=== PATIENT | male | born 1945 | race Caucasian/White ===

== ENCOUNTER 2017-03-14 08:50 | Outpatient (POV) | payer OTHER, MEDICARE, SELFPAY | END 2017-03-14 11:26 | disposition home or self-care (01) | PROVIDERS: Visit Provider Podiatrist | DX: I73.1 Thromboangiitis obliterans [Buerger's disease] (principal); M20.42 Other hammer toe(s) (acquired), left foot; M20.41 Other hammer toe(s) (acquired), right foot; M25.571 Pain in right ankle and joints of right foot; M06.9 Rheumatoid arthritis, unspecified | CPT/HCPCS: 99203; 73630 ==

== ENCOUNTER 2017-03-22 07:03 | Day surgery (SDC) | payer OTHER, MEDICARE, SELFPAY | END 2017-03-22 11:05 | disposition home or self-care (01) | PROVIDERS: Family Provider Family Medicine; Visit Provider Podiatrist | DX: I73.1 Thromboangiitis obliterans [Buerger's disease] (principal); M20.41 Other hammer toe(s) (acquired), right foot | CPT/HCPCS: 28820; 73630; 87070; 96375; C1762 ==

== ENCOUNTER 2017-03-28 10:30 | Outpatient (POV) | payer OTHER, MEDICARE, SELFPAY | END 2017-03-28 13:45 | disposition home or self-care (01) | PROVIDERS: Visit Provider Podiatrist | DX: Z98.890 Other specified postprocedural states (principal) | CPT/HCPCS: 99024 ==

== ENCOUNTER → 2017-05-16 20:01 | Outpatient (CLI) | payer OTHER, MEDICARE, SELFPAY | PROVIDERS: PCP Podiatrist; Visit Provider Podiatrist | DX: T14.8XXA Other injury of unspecified body region, initial encounter (principal); L08.9 Local infection of the skin and subcutaneous tissue, unspecified | CPT/HCPCS: 87070; 87077; 87186; 87205 ==

== ENCOUNTER → 2017-06-06 15:48 | Outpatient (CLI) | payer OTHER, MEDICARE, SELFPAY ==
--- NOTE | 2017-06-06 16:48 | XR_ITS ---
XR foot RT min 3V HISTORY: Right foot pain, ulceration. ITS.REASON: WEIGHT BEARING RO O/M ULCER 4TH METATARSAL ORDERING PHYSICIAN: Shelby Gavin DPM PATIENT AGE: 72 years COMPARISON: 03/22/2017 FINDINGS: There has been amputation at the third metatarsophalangeal joint as well as amputation of the distal aspect of the fifth metatarsal. There is a small screw in the distal aspect of the third metatarsal and the distal aspect of the fourth metatarsal. There is some deformity of the distal third and fourth metatarsals are this however is similar when compared to 03/14/2017. No obvious bony erosive process is evident. There is some decreased density within the head of the fourth metatarsal however, this is not significant changed. Mild osteoarthritis is present at the first MTP joint. No other significant anomalies are evident IMPRESSION: Postsurgical changes at the distal third and fourth metatarsals with amputation at the third metatarsophalangeal joint and distal fifth metatarsal. No obvious bony erosive changes evident that would indicate acute osteomyelitis
[2017-06-06 17:24] LABS: Basophils % 0.3 % (0.1-2.0); Eosinophils # 0.2 K/mm3 (0.0-0.4); Hematocrit 44.7 % (42.0-52.0); Hemoglobin 14.6 g/dL (14.1-18.0); Lymphocytes # 1.5 K/mm3 (0.7-4.5); Lymphocytes % 15.8 K/mm3 (10-50); Mean Corpuscular HGB Conc 32.7 g/dL (31.8-35.4); Mean Corpuscular Hemoglobin 30.3 pg (27.0-31.2); Mean Corpuscular Volume 92.5 fl (80-94); Mean Platelet Volume 6.9 fl (7.4-10.4); Monocytes # 0.6 K/mm3 (0.1-1.0); Monocytes % 6.2 % (1.7-9.3); Neutrophils % 75.6 % (37.0-80.0); Platelet Count 431 K/mm3 (142-424); Red Blood Count 4.83 M/mm3 (4.60-6.20); Red Cell Distribution Width 14.2 % (11.5-17.5); White Blood Count 9.2 K/mm3 (4.8-10.8)
[2017-06-06 18:15] LABS: Erythrocyte Sedimentation Rate 59 mm/hr (0-20)
[2017-06-06 18:38] LABS: Alanine Aminotransferase 33 U/L (12-78); Albumin/Globulin Ratio 0.8 (1.1-1.8); Alkaline Phosphatase 113 U/L (46-116); Bilirubin,Total 0.3 mg/dL (0.2-1.0); Blood Urea Nitrogen 13 mg/dL (7-18); C-Reactive Protein 2.7 mg/L (0.0-0.9); Calcium 8.2 mg/dL (8.5-10.1); Carbon Dioxide 29 mmol/L (21.0-32.0); Creatinine,Serum 0.75 mg/dL (0.70-1.30); Estimated Glomerular Filt Rate 103 ml/min (>60); GFR (African American) 125 ML/MIN (>60); Globulin 3.6 gm/dl (1.3-3.2); Glucose 103 mg/dL (74-106); Total Protein,Serum 6.6 gm/dL (6.4-8.2)
[2017-06-06 19:05] LABS: Anion Gap 11.6 mEq/L (5-15); Aspartate Amino Transferase 20 U/L (15-37); Chloride 102 mmol/L (98-107); Potassium 4.6 mmoL/L (3.5-5.1); Sodium 138 mmol/L (136-145)
== END ==
PROVIDERS: PCP Family Medicine; Visit Provider Podiatrist
DX: Z98.890 Other specified postprocedural states (principal); M79.671 Pain in right foot
CPT/HCPCS: 73630; 80053; 85025; 85651; 86140; 87070; 87077; 87186; 87205

== ENCOUNTER → 2017-06-06 16:32 | Outpatient (CLI) | payer OTHER, MEDICARE, SELFPAY | PROVIDERS: PCP Family Medicine; Visit Provider Podiatrist | CPT/HCPCS: 87070; 87205 ==

== ENCOUNTER 2018-05-09 17:30 | Outpatient (RCR) | payer OTHER, MEDICARE, SELFPAY | END 2018-05-09 17:35 | disposition home or self-care (01) | LOC: PT 17:30 | PROVIDERS: PCP Family Medicine; Visit Provider Family Medicine | DX: S81.801A Unspecified open wound, right lower leg, initial encounter (principal) | CPT/HCPCS: 29580; 97161; 97597 ==

== ENCOUNTER → 2018-11-12 14:30 | Outpatient (CLI) | payer OTHER, MEDICARE, SELFPAY ==
--- NOTE | 2018-11-12 14:45 | XR_ITS ---
XR foot wt bearing RT 3V HISTORY: Left foot wound laterally ITS.REASON: Wound of left foot ORDERING PHYSICIAN: Shelby Gavin DPM PATIENT AGE: 73 years COMPARISON: 06/06/2017 FINDINGS: Osteoarthritic change first MTP joint Prior to dictation at the third metatarsophalangeal joint with a stable small screw in the distal aspect of the third metatarsal. Small screws present in the distal aspect of the fourth metatarsal. There is a defect in the distal aspect of the fourth metatarsal medially stable compared to the previous exam Apparent amputation at the distal aspect of the fifth metatarsal. No bony erosive changes. There is some irregular lucency along the distal aspect of the fifth metatarsal consistent with some soft tissue gas.. There is cortical irregularity at the top of the fifth metatarsal amputation site. This however did appear to be present on the previous exam. IMPRESSION: 1. Postsurgical changes as described above. 2. There is some irregular lucency at the fifth metatarsal region distally suggesting soft tissue gas which may be seen with infection or an open wound. 3. No definite erosive lesions apparent of the bony structures
[2018-11-12 14:54] LABS: Basophils % 0.2 % (0.1-2.0); Eosinophils % 0.3 % (0.1-12.0); Hematocrit 44.1 % (42.0-52.0); Hemoglobin 14.3 g/dL (14.1-18.0); Lymphocytes # 0.7 K/mm3 (0.7-4.5); Lymphocytes % 8.8 % (10-50); Mean Corpuscular HGB Conc 32.5 g/dL (31.8-35.4); Mean Corpuscular Hemoglobin 29.3 pg (27.0-31.2); Mean Corpuscular Volume 90.3 fl (80-94); Mean Platelet Volume 6.8 fl (7.4-10.4); Monocytes # 0.5 K/mm3 (0.1-1.0); Monocytes % 6.5 % (1.7-9.3); Neutrophils # 6.4 K/mm3 (1.8-7.8); Neutrophils % 84.2 % (37.0-80.0); Platelet Count 566 K/mm3 (142-424); Red Blood Count 4.89 M/mm3 (4.60-6.20); Red Cell Distribution Width 14.6 % (11.5-17.5); White Blood Count 7.6 K/mm3 (4.8-10.8)
[2018-11-12 16:02] LABS: Erythrocyte Sedimentation Rate 19 mm/hr (0-20)
[2018-11-12 16:17] LABS: Alanine Aminotransferase 23 U/L (12-78); Albumin Level 2.8 gm/dL (3.4-5.0); Albumin/Globulin Ratio 0.8 (1.1-1.8); Alkaline Phosphatase 93 U/L (46-116); Anion Gap 12.5 mEq/L (5-15); Aspartate Amino Transferase 15 U/L (15-37); Bilirubin,Total 0.5 mg/dL (0.2-1.0); Blood Urea Nitrogen 11 mg/dL (7-18); C-Reactive Protein 6.3 mg/dL (0.0-0.9); Calcium 8.9 mg/dL (8.5-10.1); Carbon Dioxide 27 mmol/L (21.0-32.0); Chloride 99 mmol/L (98-107); Creatinine,Serum 0.76 mg/dL (0.70-1.30); Estimated Glomerular Filt Rate 101 ml/min (>60); GFR (African American) 122 ML/MIN (>60); Globulin 3.7 gm/dl (1.3-3.2); Glucose 140 mg/dL (74-106); Potassium 4.5 mmoL/L (3.5-5.1); Sodium 134 mmol/L (136-145); Total Protein,Serum 6.5 gm/dL (6.4-8.2)
== END ==
PROVIDERS: PCP Family Medicine; Visit Provider Podiatrist
DX: Z51.89 Encounter for other specified aftercare (principal); Z89.421 Acquired absence of other right toe(s); Z89.422 Acquired absence of other left toe(s); L84 Corns and callosities; M77.41 Metatarsalgia, right foot; M79.671 Pain in right foot; M79.672 Pain in left foot
CPT/HCPCS: 36415; 73630; 80053; 85025; 85651; 86140

== ENCOUNTER → 2018-11-26 16:11 | Outpatient (CLI) | payer OTHER, MEDICARE, SELFPAY ==
--- NOTE | 2018-11-26 16:16 | US_ITS ---
PROCEDURE: US EXTREMITY RT LIMITED CLINICAL INDICATION: sub 5th met. callus Fifth metatarsal callus, evaluate for residual callus. COMPARISON: No exams were available for comparison FINDINGS: Ultrasound performed at the distal aspect of the 5th metatarsal at the plantar surface to evaluate for residual callus. There was a small area of increased echogenicity oval in nature measuring 9 x 4 mm 4 mm deep to the skin surface possibly due to residual callus. This did correspond to the palpable abnormality. No fluid collection. IMPRESSION: Possible residual callus at the 5th metatarsal region. This is however questionable. Dictated by: Jony Larsen MD 11/28/2018 05:20 Signed by: <Electronically signed by Jony Larsen MD in [place]> 11/28/2018 05:20
== END ==
PROVIDERS: PCP Family Medicine; Visit Provider Podiatrist
DX: L84 Corns and callosities (principal)
CPT/HCPCS: 76882

== ENCOUNTER → 2019-01-07 18:16 | Outpatient (CLI) | payer OTHER, MEDICARE, SELFPAY | LOC: ER 18:17 → LAB 01-09 06:29 | PROVIDERS: Visit Provider Podiatrist | DX: L84 Corns and callosities (principal) | CPT/HCPCS: 87070; 87077; 87186; 87205 ==

== ENCOUNTER → 2019-02-07 17:05 | Outpatient (CLI) | payer OTHER, MEDICARE, SELFPAY | PROVIDERS: Visit Provider Podiatrist | DX: L84 Corns and callosities (principal) | CPT/HCPCS: 87070; 87077; 87186; 87205 ==

== ENCOUNTER 2019-08-19 13:28 | Outpatient (RCR) | payer OTHER, MEDICARE, SELFPAY | END 2019-08-19 13:30 | disposition home or self-care (01) | LOC: PT 13:28 | PROVIDERS: PCP Family Medicine; Visit Provider Family Medicine | DX: S81.8 Open wound of lower leg (principal) | CPT/HCPCS: 97162 ==

== ENCOUNTER → 2019-10-15 15:52 | Outpatient (CLI) | payer OTHER, MEDICARE, SELFPAY ==
--- NOTE | 2019-10-15 15:56 | XR_ITS ---
PROCEDURE: XR FOOT WT BEARING RT 3V CLINICAL INDICATION: Right Lateral 5th met wound. COMPARISON: FTL3 FOOT-LT-3 VIEWS from 03/14/2017 FTR3 FOOT-RT-3 VIEWS from 03/14/2017 FTR3 FOOT-RT-3 VIEWS from 03/22/2017 [id number] XR foot RT min 3V from 06/06/2017 FINDINGS: There has been prior amputation of the distal aspect of the 5th metatarsal. A small ulceration is present at this region laterally at the metatarsophalangeal junction with a small amount of soft tissue gas noted. There is some splintering at the distal and lateral aspect the 5th metatarsal not readily apparent on the previous exam and could be posttraumatic or secondary to underlying osteomyelitis. Please correlate with clinical parameters. MRI may provide further evaluation. There are small screws within the distal aspect of the 4th and 3rd metatarsal. There has been prior amputation of the 3rd toe. Mild osteoarthritic changes are present at the 1st MTP joint with mild hallux valgus IMPRESSION: Postsurgical changes as described above with a small ulceration and soft tissue gas noted at the lateral aspect of the 5th meta tarsal phalangeal junction with minimal splintering of the distal aspect of the 5th metatarsal at the previous area of amputation which could be due to underlying osteomyelitis or posttraumatic changes Dictated by: Jony Larsen MD 10/15/2019 16:36 Electronically signed by Jony Larsen MD in [place] 10/15/2019 16:36
== END ==
PROVIDERS: PCP Family Medicine; Visit Provider Nurse Practitioner
DX: S90.851A Superficial foreign body, right foot, initial encounter (principal)
CPT/HCPCS: 73630; 87070; 87077; 87186; 87205

== ENCOUNTER → 2019-11-07 11:23 | Outpatient (CLI) | payer OTHER, MEDICARE, SELFPAY ==
[2019-11-07 11:58] LABS: Hemoglobin 13.8 g/dL (14.1-18.0); Red Blood Count 4.35 M/mm3 (4.60-6.20); White Blood Count 9.4 K/mm3 (4.8-10.8)
[2019-11-07 11:59] LABS: Basophils % 0.3 % (0.1-2.0); Eosinophils # 0.2 K/mm3 (0.0-0.4); Eosinophils % 1.9 % (0.1-12.0); Hematocrit 40.6 % (42.0-52.0); Lymphocytes # 1.6 K/mm3 (0.7-4.5); Lymphocytes % 16.9 % (10-50); Mean Corpuscular HGB Conc 34.1 g/dL (31.8-35.4); Mean Corpuscular Hemoglobin 31.8 pg (27.0-31.2); Mean Corpuscular Volume 93.2 fl (80-94); Mean Platelet Volume 7.4 fl (7.4-10.4); Monocytes # 0.7 K/mm3 (0.1-1.0); Neutrophils # 6.9 K/mm3 (1.8-7.8); Neutrophils % 73.9 % (37.0-80.0); Platelet Count 456 K/mm3 (142-424); Red Cell Distribution Width 15.2 % (11.5-17.5)
[2019-11-07 12:12] LABS: Chloride 105 mmol/L (98-107)
[2019-11-07 12:13] LABS: Potassium 3.7 mmoL/L (3.5-5.1); Sodium 138 mmol/L (136-145)
[2019-11-07 12:16] LABS: Alanine Aminotransferase 21 U/L (12-78); Albumin Level 3.3 g/dl (3.5-5.0); Albumin/Globulin Ratio 1.1 (1.1-1.8); Alkaline Phosphatase 99 U/L (38-126); Anion Gap 7.7 mEq/L (5-15); Aspartate Amino Transferase 31 U/L (17-59); Bilirubin,Total 0.5 mg/dl (0.2-1.3); Blood Urea Nitrogen 27 mg/dl (9-20); Calcium 8.9 mg/dl (8.4-10.2); Carbon Dioxide 29 mmol/L (22.0-30.0); Estimated Glomerular Filt Rate 111 ml/min (>60); GFR (African American) 134 ML/MIN (>60); Globulin 3.1 g/dL (1.3-3.2); Glucose 98 mg/dl (74-100); Total Protein,Serum 6.4 g/dl (6.3-8.2)
[2019-11-07 12:22] LABS: C-Reactive Protein 17.9 mg/L (0-4)
[2019-11-07 12:39] LABS: Erythrocyte Sedimentation Rate 73 mm/hr (0-20)
== END ==
PROVIDERS: Visit Provider Nurse Practitioner
DX: Z51.89 Encounter for other specified aftercare (principal); S90.851D Superficial foreign body, right foot, subsequent encounter
CPT/HCPCS: 36415; 80053; 85025; 85651; 86140; 87070; 87077; 87205

== ENCOUNTER → 2019-11-21 12:48 | Outpatient (CLI) | payer OTHER, MEDICARE, SELFPAY ==
--- NOTE | 2019-11-21 12:58 | MR_ITS ---
PROCEDURE: MR FOOT RT WO/W CON CLINICAL INDICATION: foreign body, pain PT has foreign body removed from foot. States wound is open and will not heal. Wound on lateral aspect of foot at 5th metatarsal. PT is not a diabetic. COMPARISON: CR XR FOOT WT BEARING RT 3V from 10/15/2019 TECHNIQUE: Routine multiplanar multi echo sequences are performed without and with gadolinium enhancement. FINDINGS: Recent radiograph demonstrates that there has been prior removal of the distal aspect of the 5th metatarsal. The 5th phalanx however is in place. There are 2 small screws at the distal aspect of the 3rd and 4th metatarsal and there has been amputation the 4th metatarsophalangeal junction. There is abnormal signal intensity involving the proximal mid and distal aspect of the remaining 5th metatarsal showing increased T2 signal. There is intense enhancement of the distal aspect the remaining 5th metatarsal also with increased T2 signal in the surrounding soft tissues and surrounding soft tissue enhancement consistent with osteomyelitis with cellulitis. No obvious abscess. On the axial images there is increased signal intensity of the 5th toe however, this is felt to be artifactual in nature not duplicated on the sagittal or coronal images. There is some mild soft tissue edema along the ankle and foot. Prior amputation at the 3rd metatarsophalangeal junction. IMPRESSION: Postsurgical changes of the 5th metatarsal with findings which are compatible with osteomyelitis of the 5th metatarsal with surrounding cellulitis. Dictated by: Jony Larsen MD 11/23/2019 10:22 Jony Larsen MD in [place] 11/23/2019 10:22
== END ==
PROVIDERS: PCP Family Medicine; Visit Provider Podiatrist
DX: M79.671 Pain in right foot (principal); M79.672 Pain in left foot; S90.851A Superficial foreign body, right foot, initial encounter; Z51.89 Encounter for other specified aftercare
CPT/HCPCS: 73720; A9576

== ENCOUNTER → 2019-12-12 15:57 | Outpatient (CLI) | payer OTHER, MEDICARE, SELFPAY ==
--- NOTE | 2019-12-12 16:20 | XR_ITS ---
PROCEDURE: XR CHEST 2V CLINICAL HISTORY: SOB, PRE OPERATIVE TESTING COMPARISON: CT CT CHEST WITH CONTRAST from 10/09/2015 CR [id number] XR ribs RT min 3V w CXR1V from 08/12/2018 FINDINGS: The heart size is unremarkable. Chronic interstitial changes are present with calcified pleural plaques and diaphragmatic plaques bilaterally. These findings are not significantly changed.. No acute bony findings. There is mild biapical pleural thickening. IMPRESSION: Findings compatible with asbestos related exposure as described above overall not significantly changed Dictated by: Jony Larsen MD 12/12/2019 16:34 Jony Larsen MD in [place] 12/12/2019 16:34
--- NOTE | 2019-12-12 16:39 | ECG_ITS ---
APPROVED REPORT Exam: Resting ECG HR:89 bpm ECG Measurements Heart Rate 89 AXES [place] 168 P 38 QRSd 96 QRS 30 QT 378 T 39 QTc 459 <Conclusion> Normal sinus rhythm Normal ECG Electronically signed by : Salvador Wu, 12/13/2019 06:32:01
[2019-12-12 16:45] LABS: Basophils % 0.2 % (0.1-2.0); Eosinophils # 0.1 K/mm3 (0.0-0.4); Eosinophils % 1.2 % (0.1-12.0); Hematocrit 46.9 % (42.0-52.0); Hemoglobin 15.3 g/dL (14.1-18.0); Lymphocytes # 1.3 K/mm3 (0.7-4.5); Lymphocytes % 15.1 % (10-50); Mean Corpuscular HGB Conc 32.6 g/dL (31.8-35.4); Mean Corpuscular Hemoglobin 30.6 pg (27.0-31.2); Mean Corpuscular Volume 93.8 fl (80-94); Mean Platelet Volume 7.8 fl (7.4-10.4); Monocytes # 0.5 K/mm3 (0.1-1.0); Neutrophils # 6.4 K/mm3 (1.8-7.8); Neutrophils % 77.5 % (37.0-80.0); Platelet Count 496 K/mm3 (142-424); Red Cell Distribution Width 14.6 % (11.5-17.5); White Blood Count 8.3 K/mm3 (4.8-10.8)
[2019-12-12 17:03] LABS: Alanine Aminotransferase 27 U/L (12-78); Albumin Level 3.7 g/dl (3.5-5.0); Albumin/Globulin Ratio 1.1 (1.1-1.8); Alkaline Phosphatase 128 U/L (38-126); Anion Gap 15.5 mEq/L (5-15); Aspartate Amino Transferase 34 U/L (17-59); Bilirubin,Total 0.3 mg/dl (0.2-1.3); Blood Urea Nitrogen 23 mg/dl (9-20); Calcium 9.7 mg/dl (8.4-10.2); Carbon Dioxide 25 mmol/L (22.0-30.0); Chloride 101 mmol/L (98-107); Estimated Glomerular Filt Rate 132 ml/min (>60); GFR (African American) 160 ML/MIN (>60); Globulin 3.5 g/dL (1.3-3.2); Glucose 138 mg/dl (74-100); Potassium 4.5 mmoL/L (3.5-5.1); Sodium 137 mmol/L (136-145); Total Protein,Serum 7.2 g/dl (6.3-8.2)
[2019-12-12 17:08] LABS: C-Reactive Protein 28.3 mg/L (0-4)
[2019-12-12 17:11] LABS: Erythrocyte Sedimentation Rate 53 mm/hr (0-20)
[2019-12-12 17:32] LABS: Coronavirus 19 IgG Antibody Negative (Negative)
[2019-12-12 17:40] LABS: Coronavirus 19 IgM Antibody Positive (Negative)
[2019-12-13 11:51] LABS: Hemoglobin A1C 5.6 % (4.0-6.0)
== END ==
PROVIDERS: Nurse Practitioner; Visit Provider Podiatrist
DX: R73.9 Hyperglycemia, unspecified (principal); Z01.810 Encounter for preprocedural cardiovascular examination; L97.514 Non-pressure chronic ulcer of other part of right foot with necrosis of bone
CPT/HCPCS: 36415; 71046; 80053; 83036; 85025; 85651; 86140; 86328; 93005

== ENCOUNTER → 2019-12-13 10:29 | Outpatient (CLI) | payer OTHER, MEDICARE, SELFPAY ==
[2019-12-14 14:34] LABS: Covid-19 Nasal PCR Sendout Lex Not Detected
== END ==
PROVIDERS: PCP Family Medicine; Visit Provider Nurse Practitioner
DX: Z03.818 Encounter for observation for suspected exposure to other biological agents ruled out (principal)
CPT/HCPCS: U0004

== ENCOUNTER 2019-12-25 10:09 | Day surgery (SDC) | payer OTHER, MEDICARE, SELFPAY ==
[2019-12-25] VITALS (17 sets, daily range): BP systolic 92–168; BP diastolic 47–95; PULSE 67–81; RESP 17–20; O2SAT 98–100; BMI 26.4
--- NOTE | 2019-12-25 09:33 | CA_ITS ---
APPROVED REPORT EXAM: Comprehensive 2D, Doppler, and color-flow Echocardiogram It Communications Manager: Rosalee Moralez RVT Ht: 5 ft 11 in Wt: 191lbs BSA: 2.07 BP: 139/94 mmHg Indications: abn ekg,cad,pad,pre-op toe amputation,htn TDS-LIMITED WINDOWS 2D Dimensions LVOT 2.10 cm (M/F) 1.5-2.5 M-Mode Dimensions RVDd 2.00 cm (0.9-2.6) LA Diam 3.00 cm (1.9-4.0) LVDd 5.90 cm (3.5-5.7) Ao Diam 3.60 cm (2.0-3.7) LVDs 4.20 cm (3.5-5.7) AV Cusp 1.70 cm (1.5-2.6) IVSd 0.50 cm (0.6-1.1) PWd 0.70 cm (0.6-1.1) EF (Teich) 54.60% FS 28.80% EDV (Teich) 173.00 mL ESV (Teich) 78.60 mL LV Diastology E/A Ratio 0.9 MED E' 8.77 (< 7 cm/sec) E'/MED E' Ratio 6.60 (>14) LAT E' 8.09 (<10 cm/sec) E/LAT E' Ratio 7.10 (>14) Aortic Valve AoV Peak Lennox. 108.00 (50-130 cm/s) AO Peak GR. 5.00 mmHg Mitral Valve MV E Max Lennox. 57.80 (40-130 cm/s) MV A Velocity 66.60 (40-130 cm/s) E/A Ratio 0.90 Pulmonary Valve PV Peak Velocity 111.00 (50-150 cm/s) Left Ventricle Left atrium is mildly enlarged, left ventricle is normal size, mild concentric left ventricular hypertrophy, visually estimated ejection fraction 50%, there is moderate hypokinesis involving the inferior basal wall. Endocardial surfaces are poorly visualized, diastolic parameters are inconclusive. Right Ventricle Right atrium and right ventricular normal size and contractility. Aortic Valve Aortic valve is thickened and calcified leaflet chordae display good mobility, there is no aortic stenosis or aortic insufficiency. Mitral Valve Mitral valve is grossly normal, there is mild mitral regurgitation. Tricuspid Valve Tricuspid valve is grossly normal, there is mild tricuspid regurgitation, tricuspid regurgitation jet velocity is inadequate for calculation of the right ventricular systolic pressure. Pulmonic Valve Pulmonic valve is poorly visualized. Great Vessels Root is normal size. Pericardium No significant pericardial effusion noted. Conclusion 1. Technically difficult study because of the patient fact in poor acoustic windows 2. Mildly enlarged left atrium, normal left ventricular size, visually estimated ejection fraction 50% with segmental wall motion abnormality as described above. 3. Mild mitral and tricuspid regurgitation. 4. No significant pericardial effusion noted. Electronically signed by : Joe Solis, 12/26/2019 15:36:28
--- NOTE | 2019-12-25 10:30 | IR_ITS ---
APPROVED REPORT Patient Location: Outpatient Tool Design Checker: RAGINI Yang RT (R) PROCEDURES Catheter placed in the abdominal aorta Abdominal aortography Repositioning the catheter in the abdominal aorta Bilateral iliofemoral runoff INDICATION Preoperative evaluation for amputation, Converse class V claudication, Abnormal EDI Informed consent was obtained prior to the procedure. COMPLICATIONS NONE Estimated Blood Loss: LESS THAN 10 ML TECHNIQUE 1% lidocaine used to anesthetize the left femoral groin. The left femoral artery was accessed via the Seldinger technique. Using fluoroscopic guidance the JR4 catheter was advanced from the aorta into the right common iliac artery and then advanced into the right superficial femoral artery. There unilateral selective angiography with runoff to the foot was performed. Following this the catheter was pulled back into the right common iliac artery and angiography was performed. At the end of the procedure the patient was transferred to the postop holding area in stable condition for sheath removal. ANGIOGRAPHIC RESULTS The infrarenal abdominal aorta is mildly atheromatous with 10% stenoses. The bilateral common iliac arteries are mildly atheromatous with 10% stenoses. The bilateral internal iliac arteries and external iliac arteries are normal. The bilateral common femoral arteries are normal Bilateral profunda femoris arteries are normal The bilateral superficial femoral arteries are mildly atheromatous with no focal stenosis greater than 10%. The bilateral popliteal arteries are normal Below the knee the right leg has a widely patent anterior tibialis artery. The peroneal artery is subtotally occluded at mid vessel and then reconstitutes distally. The posterior tibialis artery is proximally occluded and has scant distal recannulation via collaterals through the peroneal artery and the posterior tibialis artery scantly supplies the foot. Below the left knee the anterior tibialis artery is widely patent into the left foot. The left peroneal artery is occluded at mid vessel. The posterior tibialis artery is also occluded at mid vessel. There is single-vessel runoff into the foot from the anterior tibialis artery IMPRESSION Bilateral infrageniculate small vessel disease as described above all of which is too small for percutaneous or surgical revascularization PLAN 1. Xarelto 2.5 twice daily plus aspirin 81 mg daily for peripheral artery disease 2. LDL less than 55 3. Risk factor modification 4. Physical therapy Electronically signed by : Navneet Pantoja, 12/25/2019 14:10:12
[2019-12-25 10:34] LABS: Basophils % 0.4 % (0.1-2.0); Eosinophils # 0.3 K/mm3 (0.0-0.4); Eosinophils % 2.7 % (0.1-12.0); Hematocrit 47.1 % (42.0-52.0); Hemoglobin 15.4 g/dL (14.1-18.0); Lymphocytes # 1.4 K/mm3 (0.7-4.5); Mean Corpuscular HGB Conc 32.6 g/dL (31.8-35.4); Mean Corpuscular Hemoglobin 30.9 pg (27.0-31.2); Mean Corpuscular Volume 94.6 fl (80-94); Mean Platelet Volume 7.5 fl (7.4-10.4); Monocytes # 0.6 K/mm3 (0.1-1.0); Monocytes % 5.7 % (1.7-9.3); Neutrophils # 7.9 K/mm3 (1.8-7.8); Neutrophils % 77.2 % (37.0-80.0); Platelet Count 489 K/mm3 (142-424); Red Blood Count 4.97 M/mm3 (4.60-6.20); Red Cell Distribution Width 14.2 % (11.5-17.5); White Blood Count 10.2 K/mm3 (4.8-10.8)
[2019-12-25 10:41] LABS: Chloride 103 mmol/L (98-107); Potassium 3.6 mmoL/L (3.5-5.1); Sodium 140 mmol/L (136-145)
[2019-12-25 10:44] LABS: Anion Gap 10.6 mEq/L (5-15); Blood Urea Nitrogen 21 mg/dl (9-20); Calcium 9.5 mg/dl (8.4-10.2); Carbon Dioxide 30 mmol/L (22.0-30.0); Creatinine Clearance Estimated 81 mL/min (50-200); Estimated Glomerular Filt Rate 111 ml/min (>60); GFR (African American) 134 ML/MIN (>60); Glucose 101 mg/dl (74-100)
[2019-12-25 11:04] LABS: Coronavirus 19 IgG Antibody Negative (Negative); Coronavirus 19 IgM Antibody Negative (Negative)
== END 2019-12-25 15:49 | disposition home or self-care (01) ==
LOC: CATHLAB 10:10
PROVIDERS: PCP Family Medicine; Visit Provider Internal Medicine
DX: I70.235 Atherosclerosis of native arteries of right leg with ulceration of other part of foot (principal); L97.514 Non-pressure chronic ulcer of other part of right foot with necrosis of bone; M79.671 Pain in right foot; M79.672 Pain in left foot; Z89.421 Acquired absence of other right toe(s); Z89.422 Acquired absence of other left toe(s); Z79.899 Other long term (current) drug therapy; Z88.8 Allergy status to other drugs, medicaments and biological substances
CPT/HCPCS: 36200; 75716; 80048; 85025; 86328; 93306; 99152; C1725; C1769; C1894; J1644

== ENCOUNTER → 2020-01-01 13:45 | Outpatient (CLI) | payer OTHER, MEDICARE, SELFPAY ==
[2020-01-01 15:16] LABS: Coronavirus 19 IgG Antibody Negative (Negative)
[2020-01-01 15:19] LABS: Coronavirus 19 IgM Antibody Positive (Negative)
== END ==
PROVIDERS: Visit Provider Podiatrist
DX: Z01.89 Encounter for other specified special examinations (principal); M86.171 Other acute osteomyelitis, right ankle and foot
CPT/HCPCS: 36415; 86328

== ENCOUNTER → 2020-01-02 11:28 | Outpatient (CLI) | payer OTHER, MEDICARE, SELFPAY ==
[2020-01-03 14:09] LABS: Covid-19 Nasal PCR Sendout Lex NOT DETECTED
== END ==
PROVIDERS: PCP Family Medicine; Visit Provider Internal Medicine
DX: Z03.818 Encounter for observation for suspected exposure to other biological agents ruled out (principal)
CPT/HCPCS: U0004

== ENCOUNTER 2020-01-08 08:48 | Day surgery (SDC) | payer OTHER, MEDICARE, SELFPAY ==
[2020-01-08] VITALS (11 sets, daily range): BP systolic 109–142; BP diastolic 60–89; PULSE 61–76; RESP 16–18; TEMP 36.8; O2SAT 88–98; BMI 25.9
--- NOTE | 2020-01-08 09:00 | IR_ITS ---
APPROVED REPORT Patient Location: Outpatient Locator: RAGINI Yang RT (R) PROCEDURES Left heart catheterization Left ventriculogram Selective coronary angiogram INDICATION Preoperative evaluation for amputation Informed consent was obtained prior to the procedure. COMPLICATIONS NONE Estimated Blood Loss: LESS THAN 10 ML TECHNIQUE One percent lidocaine used to anesthetize the right anterior aspect of the wrist. The right radial artery was accessed via the Seldinger technique. A 6 Bulgarian sheath was placed in the right radial artery. 2.5 mg of verapamil, 800 mcg of nitroglycerin, 1mg Lidocaine and 5000 U Heparin were given through the arterial sheath. The trap catheter and 6 Bulgarian JL 3 catheter were used to perform left heart catheterization, left ventriculogram and selective coronary angiogram. At the end of the procedure the sheath was removed good hemostasis was achieved using Traclet band, patient was transferred to the postop holding area in stable condition. ANGIOGRAPHIC RESULTS The left main artery Normal The left anterior descending artery Has a proximal concentric 30% stenosis followed by an additional 30 to 40% proximal concentric stenosis The circumflex artery Nondominant normal The right coronary artery Has an anterior takeoff is large and dominant with a mid vessel 30 to 40% concentric stenosis The GONZALEZ ventriculogram reveals Preserved to mildly reduced at 55% The left ventricular end-diastolic pressure 10 mmHg IMPRESSION Mild to moderate xtn-jwft-[id number] coronary disease as described above Preserved to slightly reduced ejection fraction of 55% Normal left ventricular end-diastolic pressure PLAN 1. Patient is alone acceptable risk to proceed with lower extremity digit amputation 2. Continue risk factor modification 3. LDL less than 55 4. Avoidance of tobacco products Electronically signed by : Navneet Pantoja, 01/08/2020 10:41:46
[2020-01-08 09:28] LABS: Basophils % 0.4 % (0.1-2.0); Eosinophils # 0.3 K/mm3 (0.0-0.4); Hematocrit 45.9 % (42.0-52.0); Hemoglobin 14.7 g/dL (14.1-18.0); Lymphocytes # 1.7 K/mm3 (0.7-4.5); Lymphocytes % 17.9 % (10-50); Mean Corpuscular Hemoglobin 30.1 pg (27.0-31.2); Mean Corpuscular Volume 93.9 fl (80-94); Monocytes # 0.6 K/mm3 (0.1-1.0); Monocytes % 6.2 % (1.7-9.3); Neutrophils # 6.9 K/mm3 (1.8-7.8); Neutrophils % 72.5 % (37.0-80.0); Platelet Count 507 K/mm3 (142-424); Red Blood Count 4.89 M/mm3 (4.60-6.20); Red Cell Distribution Width 13.6 % (11.5-17.5); White Blood Count 9.6 K/mm3 (4.8-10.8)
[2020-01-08 09:39] LABS: Anion Gap 8.5 mEq/L (5-15); Blood Urea Nitrogen 19 mg/dl (9-20); Calcium 9.2 mg/dl (8.4-10.2); Carbon Dioxide 31 mmol/L (22.0-30.0); Chloride 102 mmol/L (98-107); Creatinine Clearance Estimated 82 mL/min (50-200); Estimated Glomerular Filt Rate 132 ml/min (>60); GFR (African American) 160 ML/MIN (>60); Glucose 101 mg/dl (74-100); Potassium 3.5 mmoL/L (3.5-5.1); Sodium 138 mmol/L (136-145)
[2020-01-08 10:13] LABS: Coronavirus 19 IgG Antibody Negative (Negative)
[2020-01-08 10:14] LABS: Coronavirus 19 IgM Antibody Positive (Negative)
== END 2020-01-08 13:32 | disposition home or self-care (01) ==
PROVIDERS: PCP Family Medicine; Visit Provider Internal Medicine
DX: L97.514 Non-pressure chronic ulcer of other part of right foot with necrosis of bone (principal); M79.671 Pain in right foot; M79.672 Pain in left foot; R93.1 Abnormal findings on diagnostic imaging of heart and coronary circulation; Z89.421 Acquired absence of other right toe(s); Z89.422 Acquired absence of other left toe(s); I25.10 Atherosclerotic heart disease of native coronary artery without angina pectoris; Z79.899 Other long term (current) drug therapy; I10 Essential (primary) hypertension; Z88.8 Allergy status to other drugs, medicaments and biological substances
CPT/HCPCS: 80048; 85025; 86328; 93458; 99152; C1725; C1769; C1894; J1644; Q9967

== ENCOUNTER → 2020-01-09 13:14 | Outpatient (CLI) | payer OTHER, MEDICARE, SELFPAY | LOC: COVID.OUT 13:15 → LAB 01-10 06:11 | PROVIDERS: PCP Family Medicine; Visit Provider Podiatrist | DX: Z03.818 Encounter for observation for suspected exposure to other biological agents ruled out (principal) | CPT/HCPCS: U0003 ==

== ENCOUNTER 2020-01-10 06:12 | Day surgery (SDC) | payer MEDICARE, SELFPAY ==
[2020-01-01 08:26] VITALS: BMI 25.9
[2020-01-10] VITALS (12 sets, daily range): BP systolic 105–135; BP diastolic 71–84; PULSE 70–83; RESP 16–18; TEMP 36.3–43; O2SAT 95–98
--- NOTE | 2020-01-10 06:59 | XR_ITS ---
PROCEDURE: XR CHEST PORTABLE PICC PLAC CLINICAL HISTORY: PICC line placement COMPARISON: CT CT CHEST WITH CONTRAST from 10/09/2015 CR [id number] XR ribs RT min 3V w CXR1V from 08/12/2018 CR XR CHEST 2V from 12/12/2019 FINDINGS: The lung prajapati are fairly well expanded. Prominent bilateral calcific pleural plaques are again noted which are stable. There is no acute infiltrate. There is chronic stable elevation left hemidiaphragm with calcified plaque on the medial aspect of the left hemidiaphragm and a similar calcified plaque medial aspect right hemidiaphragm. Cardiac size is normal and vascularity is normal. There is a left-sided PICC line seen ascending the left axillary vein and the tip is in the SVC well above the right atrium. There is no pneumothorax. IMPRESSION: Stable chronic calcified pleural plaques, satisfactory position of PICC line Dictated by: Dr. Danny Junior MD 01/10/2020 08:45 Dr. Danny Junior MD in [place] 01/10/2020 08:45
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
--- NOTE | 2020-01-10 08:21 | P.PN_ITS ---
[facility] Anesthesia Checklist - Patient Identification Patient Identification: Arm Band - Structural Data Admitted From: Home Planned Operative Procedure/s: I&D right foot Consent for Planned Operative Procedure(s) Verified: Yes Verified Documents: Surgical Consent, History and Physical - NPO Status Verified Time NPO: 00:00 - Additional verifications Anesthesia Reactions: No Hx Blood Transfusions: No Blood Transfusion Reaction: No - Airway Assessment C-Spine Mobility Assessed: Yes (mp2) TMJ Mobility Assessed: Yes Dentition: Edentulous - Neurological Assessment Level of Consciousness: Awake, Alert - Anesthesia Plan Anesthesia Risk discussed: Yes Anesthesia Plan: Verified ASA Class: III Anesthesia Type: General [facility] History I have reviewed the patient's past medical history: Yes Medical History: Reports:: Atherosclerotic Heart Disease, Gastroesophageal Reflux Disease(GERD), Hypertension, Peripheral Artery Disease, Peripheral Vascular Disease Denies:: Cancer, Diabetes Mellitus Type 1, Diabetes Mellitus Type 2, Hyperlipidemia, Internal Pacemaker, MRSA, Seizures *Have you ever received a pneumonia vaccine?: Yes *Have you received a flu vaccine this season?: No Other Medical History: Reports: Arthritis, Cataracts. Denies: Blood Transfusion Reaction Anesthesia experience/problems:: nac Laterality Cases: Bilateral: Other Other Surgeries: Yes: Angiogram, Colonoscopy, Other. No: Pacemaker Amputation: Yes (R foot 3rd toe, L foot 2nd toe, Partial amputation 4th left hand ) Fractures: Yes - *Social History Last grade of school completed: GED Smoking Status: Former smoker Tobacco Type: cigarettes # Packs/Day (cigarettes): 0 #Yrs smoked (if former smoker): 0 Smoking End Date: 2002 Alcohol Intake: never Alcohol Intake Frequency:: a few times a month Substance Use Type: denies use *Occupational Status:: retired Housing: house Household Members: none *Travel in the last 8 weeks: None Family Hx:: Diabetes
--- NOTE | 2020-01-10 08:45 | XR_ITS ---
PROCEDURE: XR FOOT RT MIN 3V Referring Doctor: Shelby Gavin Patient Age:74Y CLINICAL INDICATION: Post op amp 5th toe COMPARISON: CR FTR3 FOOT-RT-3 VIEWS from 03/22/2017 CR [id number] XR foot RT min 3V from 06/06/2017 CR XR FOOT WT BEARING RT 3V from 10/15/2019 CR XR FOOT RT 2V from 01/10/2020 FINDINGS: Right foot-three views: Comparison is made to early intraoperative images from today. There has been transverse amputation 5th ray at the level of proximal 5th metatarsal through the metaphysis/diametaphyseal region. Slightly radiopaque antibiotic pellets seen along the course of the resected 5th metatarsal. Soft tissue dressing about the foot most evident overlying the resected 5th metatarsal region The patient has old prior amputation of the 3rd toe at the level of the 3rd MTP joint. Also at 3rd and 4th metatarsal again note prior metatarsal surgery with small screws passing obliquely from head to the neck of both 3rd and 4th meta tarsal headsdating back to at least 2017 the Mild degenerative changes 1st MTP joint similar to previous studies there is some small subchondral cystic changes base of proximal phalanx great toe associated and again noted.. Mild hallux valgus deformity Tarsals intact. Faint small vessel calcification noted posterior to the ankle reflecting likely underlying diabetes IMPRESSION: Current amputation at the level of proximal 5th metatarsal. Associated postsurgical changes . Old amputation 3rd toe at the level of 3rd MTP joint . Old stable postsurgical changes 3rd and 4th metatarsal head/neck . Degenerative changes 1st MTP joint. Mild hallux valgus Dictated by: Lincoln Carpio MD 01/12/2020 10:22 Lincoln Carpio MD in [place] 01/12/2020 10:22
--- NOTE | 2020-01-10 08:57 | XR_ITS ---
PROCEDURE: XR FOOT RT 2V Referring Doctor: Shelby Gavin Patient Age:74Y CLINICAL INDICATION: Fifth TOE-AMPUTATION 5TH metatarsal COMPARISON: . CR [id number] XR foot RT min 3V from 06/06/2017 CR XR FOOT WT BEARING RT 3V from 10/15/2019 FINDINGS: Right foot-three: Spot views with fluoroscopy time 0.1 2 fluoroscopic spot views the submitted today from OR,. These document positioning and amputation of the 5th ray at the level of proximal 5th metatarsal Also note the patient has old prior amputation of the 3rd toe at the level of the 3rd MTP joint. Also at 3rd and 4th metatarsal again note prior metatarsal surgery with small screws passing obliquely from head to the neck of both 3rd and 4th meta tarsal headsdating back to at least 2017 the . IMPRESSION: Current images document amputation at the level of proximal 5th metatarsal.. . IMPRESSION: .Current images document amputation at the level of proximal 5th metatarsal.. Dictated by: Lincoln Carpio MD 01/12/2020 10:25 Lincoln Carpio MD in [place] 01/12/2020 10:25
--- NOTE | 2020-01-10 09:29 | HMH.ANESI ---
[facility] Anesthesia Record Part I Intake, IV Amount: 1,000 Estimated blood loss (mL): 10 Urine output (mL): 0 Blood Pressure: 126/78 SaO2: 96 Pulse Rate: 82 Respiratory Rate: 16 Temperature: 97.9 F Patient is:: Drowsy, Stable Stable to PACU at:: 09:25
--- NOTE | 2020-01-10 10:51 | SUR.PHASEI ---
0931-xray @ bs taking xray. Pt tolerated well. 0935- eating ice chips. Tolerated well. 0945- @ BS talking to pt. No new orders received.
--- NOTE | 2020-01-10 11:38 | HMH.ANESII ---
[facility] Anesthesia Record Part II Discharge Time: 09:55 Destination: Surgical Day Care (OP Surgery) PACU nurse assessment reviewed?: Yes Patient Condition:: Good Anesthesia Complications:: None Swallowing reflex intact?: Yes Cyanosis?: No Blood Pressure: 135/71 Pulse Rate: 75 Temperature: 97.3 F Mental Status: Alert & Oriented Pain level:: 0 Nausea and/or vomitting:: None Intake, IV Amount: 0
== END 2020-01-10 11:10 | disposition home or self-care (01) ==
LOC: OR 06:14
PROVIDERS: PCP Family Medicine; Visit Provider Podiatrist
PROC: (CPT 28810; principal; 2020-01-10 07:30)
DX: L97.514 Non-pressure chronic ulcer of other part of right foot with necrosis of bone (principal); M87.874 Other osteonecrosis, right foot; M86.171 Other acute osteomyelitis, right ankle and foot; I73.1 Thromboangiitis obliterans [Buerger's disease]; S90.01XD Contusion of right ankle, subsequent encounter; S90.31XD Contusion of right foot, subsequent encounter; S91.001D Unspecified open wound, right ankle, subsequent encounter; L03.115 Cellulitis of right lower limb; Z79.01 Long term (current) use of anticoagulants; Z87.891 Personal history of nicotine dependence; I10 Essential (primary) hypertension; Z89.421 Acquired absence of other right toe(s); Z89.422 Acquired absence of other left toe(s)
CPT/HCPCS: 11042; 28810; 71045; 73620; 73630; 87070; 87077; 87205; 88305; 88311; 96374; C1713; C1751; J2405; J3370

== ENCOUNTER → 2020-01-11 10:38 | Outpatient (CLI) | payer OTHER, MEDICARE, SELFPAY ==
[2020-01-11 12:04] VITALS: BP 145/75; PULSE 66; RESP 20; TEMP 36.6; O2SAT 99; BMI 25.9
== END ==
PROVIDERS: PCP Family Medicine; Visit Provider Podiatrist
DX: M86.8X7 Other osteomyelitis, ankle and foot (principal)
CPT/HCPCS: 96365; J0878

== ENCOUNTER → 2020-01-12 10:30 | Outpatient (CLI) | payer OTHER, MEDICARE, SELFPAY ==
[2020-01-12 10:30] VITALS: BP 136/72; PULSE 81; RESP 18; TEMP 36.6; O2SAT 97
[2020-01-12 11:25] VITALS: BP 133/69; PULSE 84; RESP 18; TEMP 36.6; O2SAT 98
== END ==
PROVIDERS: PCP Family Medicine; Visit Provider Podiatrist
DX: M86.8X7 Other osteomyelitis, ankle and foot (principal)
CPT/HCPCS: 96365; J0878

== ENCOUNTER 2020-01-13 09:55 | Outpatient (CLI) | payer OTHER, MEDICARE, SELFPAY ==
[2020-01-13 10:04] VITALS: BMI 25.9
[2020-01-13 10:20] VITALS: BP 156/78; PULSE 77; RESP 18; TEMP 37.1; O2SAT 96
[2020-01-13 10:50] LABS: Creatine Kinase 46 U/L (55-170)
[2020-01-13 11:20] VITALS: BP 116/80; PULSE 79; RESP 18; TEMP 36.6; O2SAT 96
== END 2020-01-13 11:20 | disposition home or self-care (01) ==
LOC: INF 10:03
PROVIDERS: Visit Provider Podiatrist
DX: M86.8X7 Other osteomyelitis, ankle and foot (principal)
CPT/HCPCS: 82550; 96365; J0878

== ENCOUNTER 2020-01-14 10:16 | Outpatient (CLI) | payer OTHER, MEDICARE, SELFPAY ==
[2020-01-14 10:35] VITALS: BP 154/73; PULSE 81; RESP 18; O2SAT 96
[2020-01-14 11:35] VITALS: BP 136/67; PULSE 71; RESP 18
== END 2020-01-14 11:35 | disposition home or self-care (01) ==
LOC: INF 10:16
PROVIDERS: Visit Provider Podiatrist
DX: M86.8X7 Other osteomyelitis, ankle and foot (principal)
CPT/HCPCS: 96365; J0878

== ENCOUNTER 2020-01-15 10:10 | Outpatient (CLI) | payer OTHER, MEDICARE, SELFPAY ==
[2020-01-15 10:40] VITALS: BP 147/73; PULSE 78; RESP 18; TEMP 36.3; O2SAT 97
[2020-01-15 11:42] VITALS: BP 136/79; PULSE 64; RESP 18
== END 2020-01-15 11:42 | disposition home or self-care (01) ==
LOC: INF 10:15
PROVIDERS: Visit Provider Podiatrist
DX: M86.8X7 Other osteomyelitis, ankle and foot (principal)
CPT/HCPCS: 96365; J0878

== ENCOUNTER 2020-01-16 10:45 | Outpatient (CLI) | payer OTHER, MEDICARE, SELFPAY ==
[2020-01-16 11:06] VITALS: BP 124/70; PULSE 72; RESP 18; TEMP 36.6; O2SAT 98
[2020-01-16 11:36] VITALS: BP 121/73; PULSE 76; RESP 18; O2SAT 98
[2020-01-16 11:55] VITALS: BP 127/76; PULSE 74; RESP 18; O2SAT 97
== END 2020-01-16 12:00 | disposition home or self-care (01) ==
LOC: INF 10:46
PROVIDERS: Visit Provider Podiatrist
DX: M86.8X7 Other osteomyelitis, ankle and foot (principal)
CPT/HCPCS: 96365; J0878

== ENCOUNTER 2020-01-17 10:14 | Outpatient (CLI) | payer OTHER, MEDICARE, SELFPAY ==
[2020-01-17 10:39] VITALS: BP 142/78; PULSE 75; RESP 18; TEMP 36.6; O2SAT 97
[2020-01-17 11:35] VITALS: BP 131/74; PULSE 72; RESP 16; TEMP 36.6; O2SAT 98
== END 2020-01-17 11:40 | disposition home or self-care (01) ==
LOC: INF 10:14
PROVIDERS: Visit Provider Podiatrist
DX: M86.8X7 Other osteomyelitis, ankle and foot (principal)
CPT/HCPCS: 96365; J0878

== ENCOUNTER → 2020-01-18 10:34 | Outpatient (CLI) | payer MEDICARE, SELFPAY ==
[2020-01-18 10:54] VITALS: BP 127/70; PULSE 83; RESP 16; TEMP 36.7; O2SAT 97
== END ==
PROVIDERS: PCP Family Medicine; Visit Provider Podiatrist
DX: M86.8X7 Other osteomyelitis, ankle and foot (principal)
CPT/HCPCS: 96365; J0878

== ENCOUNTER 2020-01-19 10:35 | Outpatient (CLI) | payer OTHER, MEDICARE, SELFPAY ==
[2020-01-19 11:05] VITALS: BP 144/76; PULSE 77; RESP 17; TEMP 36.8; O2SAT 97
[2020-01-19 11:35] VITALS: BP 147/72; PULSE 63; RESP 16; TEMP 36.9; O2SAT 95
== END 2020-01-19 11:35 | disposition home or self-care (01) ==
LOC: INF 10:38
PROVIDERS: PCP Family Medicine; Visit Provider Podiatrist
DX: M86.8X7 Other osteomyelitis, ankle and foot (principal)
CPT/HCPCS: 96365; G0463; J0878

== ENCOUNTER 2020-01-20 09:38 | Outpatient (CLI) | payer OTHER, MEDICARE, SELFPAY ==
[2020-01-20 09:39] VITALS: BMI 25.9
[2020-01-20 10:00] VITALS: BP 119/64; PULSE 74; RESP 18; TEMP 36.4; O2SAT 98
[2020-01-20 10:03] LABS: Basophils % 0.3 % (0.1-2.0); Eosinophils # 0.3 K/mm3 (0.0-0.4); Eosinophils % 3.3 % (0.1-12.0); Hemoglobin 13.4 g/dL (14.1-18.0); Lymphocytes # 1.6 K/mm3 (0.7-4.5); Lymphocytes % 17.3 % (10-50); Mean Corpuscular HGB Conc 31.8 g/dL (31.8-35.4); Mean Corpuscular Hemoglobin 29.7 pg (27.0-31.2); Mean Corpuscular Volume 93.2 fl (80-94); Mean Platelet Volume 7.2 fl (7.4-10.4); Monocytes # 0.8 K/mm3 (0.1-1.0); Monocytes % 8.4 % (1.7-9.3); Neutrophils # 6.3 K/mm3 (1.8-7.8); Neutrophils % 70.7 % (37.0-80.0); Platelet Count 428 K/mm3 (142-424); Red Blood Count 4.51 M/mm3 (4.60-6.20); Red Cell Distribution Width 13.5 % (11.5-17.5)
[2020-01-20 10:12] LABS: Chloride 102 mmol/L (98-107)
[2020-01-20 10:13] LABS: Potassium 3.3 mmoL/L (3.5-5.1); Sodium 135 mmol/L (136-145)
[2020-01-20 10:15] LABS: Alanine Aminotransferase 25 U/L (12-78); Alkaline Phosphatase 103 U/L (38-126); Anion Gap 8.3 mEq/L (5-15); Aspartate Amino Transferase 38 U/L (17-59); Bilirubin,Total 0.4 mg/dl (0.2-1.3); Blood Urea Nitrogen 21 mg/dl (9-20); Carbon Dioxide 28 mmol/L (22.0-30.0); Creatine Kinase 66 U/L (55-170); Creatinine Clearance Estimated 82 mL/min (50-200); Estimated Glomerular Filt Rate 132 ml/min (>60); GFR (African American) 160 ML/MIN (>60)
[2020-01-20 10:16] LABS: Albumin Level 3.4 g/dl (3.5-5.0); Calcium 8.9 mg/dl (8.4-10.2); Globulin 3.5 g/dL (1.3-3.2); Glucose 118 mg/dl (74-100); Total Protein,Serum 6.9 g/dl (6.3-8.2)
[2020-01-20 10:21] LABS: C-Reactive Protein 15.4 mg/L (0-4)
[2020-01-20 10:29] LABS: Erythrocyte Sedimentation Rate 69 mm/hr (0-20)
[2020-01-20 10:30] VITALS: BP 117/69; PULSE 72; RESP 18; O2SAT 97
[2020-01-20 11:00] VITALS: BP 112/76; PULSE 66; RESP 18; O2SAT 98
== END 2020-01-20 11:00 | disposition home or self-care (01) ==
LOC: INF 09:38
PROVIDERS: Visit Provider Podiatrist
DX: M86.8X7 Other osteomyelitis, ankle and foot (principal)
CPT/HCPCS: 80053; 82550; 85025; 85651; 86140; 96365; J0878

== ENCOUNTER 2020-01-21 10:30 | Outpatient (CLI) | payer OTHER, MEDICARE, SELFPAY ==
[2020-01-21 10:34] VITALS: BP 120/70; PULSE 76; RESP 18; TEMP 36.8; O2SAT 97
[2020-01-21 11:15] VITALS: BP 112/61; PULSE 71; RESP 16; TEMP 36.7; O2SAT 98
== END 2020-01-21 11:20 | disposition home or self-care (01) ==
LOC: INF 10:30
PROVIDERS: Visit Provider Podiatrist
DX: M86.8X7 Other osteomyelitis, ankle and foot (principal)
CPT/HCPCS: 96365; J0878

== ENCOUNTER 2020-01-22 10:15 | Outpatient (CLI) | payer MEDICARE, SELFPAY ==
[2020-01-22 10:29] VITALS: BP 153/82; PULSE 70; RESP 18; TEMP 36.6; O2SAT 96
[2020-01-22 11:36] VITALS: BP 143/77; PULSE 62; RESP 18
== END 2020-01-22 11:36 | disposition home or self-care (01) ==
LOC: INF 10:15
PROVIDERS: Visit Provider Podiatrist
DX: M86.8X7 Other osteomyelitis, ankle and foot (principal)
CPT/HCPCS: 96365; J0878

== ENCOUNTER 2020-01-23 10:05 | Outpatient (CLI) | payer MEDICARE, SELFPAY ==
[2020-01-23 10:14] VITALS: BP 128/75; PULSE 75; RESP 18; TEMP 36.7; O2SAT 98
[2020-01-23 10:55] VITALS: BP 120/69; PULSE 73; RESP 18; TEMP 36.7; O2SAT 97
== END 2020-01-23 11:05 | disposition home or self-care (01) ==
PROVIDERS: Visit Provider Podiatrist
DX: M86.8X7 Other osteomyelitis, ankle and foot (principal)
CPT/HCPCS: 96365; J0878

== ENCOUNTER 2020-01-24 13:30 | Outpatient (CLI) | payer MEDICARE, SELFPAY ==
[2020-01-24 13:50] VITALS: BP 135/76; PULSE 68; RESP 20; TEMP 36.9; O2SAT 95
[2020-01-24 14:20] VITALS: BP 112/74; PULSE 68; RESP 20; TEMP 36.9; O2SAT 98
== END 2020-01-24 14:30 | disposition home or self-care (01) ==
LOC: INF 13:30
PROVIDERS: Visit Provider Podiatrist
DX: M86.8X7 Other osteomyelitis, ankle and foot (principal)
CPT/HCPCS: 96365; J0878

== ENCOUNTER → 2020-01-25 11:08 | Outpatient (CLI) | payer MEDICARE, SELFPAY ==
[2020-01-25 11:40] VITALS: BP 132/68; PULSE 84; RESP 20; TEMP 36.6; O2SAT 100
[2020-01-25 12:26] VITALS: BP 132/68; PULSE 84; RESP 20; TEMP 36.6; O2SAT 100
== END ==
PROVIDERS: PCP Family Medicine; Visit Provider Podiatrist
DX: M86.8X7 Other osteomyelitis, ankle and foot (principal)
CPT/HCPCS: 96365; J0878

== ENCOUNTER → 2020-01-26 10:21 | Outpatient (CLI) | payer MEDICARE, SELFPAY ==
[2020-01-26 10:30] VITALS: BP 157/88; PULSE 78; RESP 18; TEMP 36.7; O2SAT 98
[2020-01-26 11:05] VITALS: BP 137/73; PULSE 70; RESP 18; O2SAT 99
[2020-01-26 12:29] VITALS: BP 137/73; PULSE 70; RESP 18; O2SAT 99
== END ==
PROVIDERS: PCP Family Medicine; Visit Provider Podiatrist
DX: M86.8X7 Other osteomyelitis, ankle and foot (principal)
CPT/HCPCS: 96365; G0463; J0878

== ENCOUNTER 2020-01-27 09:33 | Outpatient (CLI) | payer MEDICARE, SELFPAY ==
[2020-01-27 09:37] VITALS: BMI 25.9
[2020-01-27 09:58] VITALS: BP 147/82; PULSE 71; RESP 18; TEMP 36.6; O2SAT 98
[2020-01-27 10:21] LABS: Alanine Aminotransferase 36 U/L (12-78); Albumin Level 3.3 g/dl (3.5-5.0); Albumin/Globulin Ratio 0.9 (1.1-1.8); Alkaline Phosphatase 109 U/L (38-126); Anion Gap 9.9 mEq/L (5-15); Aspartate Amino Transferase 37 U/L (17-59); Basophils % 0.4 % (0.1-2.0); Bilirubin,Total 0.5 mg/dl (0.2-1.3); Blood Urea Nitrogen 23 mg/dl (9-20); Carbon Dioxide 26 mmol/L (22.0-30.0); Chloride 105 mmol/L (98-107); Creatine Kinase 73 U/L (55-170); Creatinine Clearance Estimated 82 mL/min (50-200); Eosinophils # 0.3 K/mm3 (0.0-0.4); Eosinophils % 2.7 % (0.1-12.0); Estimated Glomerular Filt Rate 111 ml/min (>60); GFR (African American) 134 ML/MIN (>60); Globulin 3.5 g/dL (1.3-3.2); Glucose 118 mg/dl (74-100); Hematocrit 41.5 % (42.0-52.0); Hemoglobin 13.5 g/dL (14.1-18.0); Lymphocytes # 1.7 K/mm3 (0.7-4.5); Lymphocytes % 14.1 % (10-50); Mean Corpuscular HGB Conc 32.5 g/dL (31.8-35.4); Mean Corpuscular Hemoglobin 29.4 pg (27.0-31.2); Mean Corpuscular Volume 90.4 fl (80-94); Mean Platelet Volume 7.4 fl (7.4-10.4); Monocytes # 0.8 K/mm3 (0.1-1.0); Monocytes % 7.1 % (1.7-9.3); Neutrophils % 75.7 % (37.0-80.0); Platelet Count 461 K/mm3 (142-424); Potassium 3.9 mmoL/L (3.5-5.1); Red Blood Count 4.59 M/mm3 (4.60-6.20); Red Cell Distribution Width 13.9 % (11.5-17.5); Sodium 137 mmol/L (136-145); Total Protein,Serum 6.8 g/dl (6.3-8.2); White Blood Count 11.9 K/mm3 (4.8-10.8)
[2020-01-27 10:41] LABS: Erythrocyte Sedimentation Rate 60 mm/hr (0-20)
[2020-01-27 10:45] VITALS: BP 140/79; PULSE 69; RESP 18; TEMP 36.6; O2SAT 98
--- NOTE | 2020-01-27 12:36 | XR_ITS ---
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 The antibiotic beads have nearly completely dissolved. There is hallux valgus as well as valgus angulation of the 2nd digit. Prior amputation at the 3rd metatarsophalangeal joint. Osteoarthritic changes are present at the 1st 2nd and 4th metatarsophalangeal joint. There are 2 screws at the head of the 3rd and 4th metatarsals with old fractures at these areas. No bony destructive process evident. Generalized vascular calcification noted. IMPRESSION: Postsurgical changes as described above with no acute finding Dictated by: Jony Larsen MD 01/27/2020 16:29 Jony Larsen MD in [facility] 01/27/2020 16:29
== END 2020-01-27 10:50 | disposition home or self-care (01) ==
PROVIDERS: PCP Family Medicine; Visit Provider Podiatrist
DX: Z98.890 Other specified postprocedural states (principal); M86.8X7 Other osteomyelitis, ankle and foot
CPT/HCPCS: 73630; 80053; 82550; 85025; 85651; 86140; 96365; J0878

== ENCOUNTER 2020-01-28 11:08 | Outpatient (CLI) | payer MEDICARE, SELFPAY ==
[2020-01-28 11:33] VITALS: BP 128/78; PULSE 86; RESP 20; TEMP 36.4; O2SAT 99
[2020-01-28 11:45] LABS: Creatine Kinase 61 U/L (55-170)
[2020-01-28 12:03] VITALS: BP 121/76; PULSE 88; RESP 20; O2SAT 98
[2020-01-28 12:37] VITALS: BP 119/71; PULSE 80; RESP 20; O2SAT 98
== END 2020-01-28 12:38 | disposition home or self-care (01) ==
LOC: INF 11:08
PROVIDERS: Visit Provider Podiatrist
DX: M86.8X7 Other osteomyelitis, ankle and foot (principal)
CPT/HCPCS: 82550; 96365; J0878

== ENCOUNTER 2020-01-29 10:15 | Outpatient (CLI) | payer MEDICARE, SELFPAY ==
[2020-01-29 10:35] VITALS: BP 128/77; PULSE 74; RESP 18; TEMP 36.7; O2SAT 98
[2020-01-29 11:20] VITALS: BP 129/81; PULSE 68; RESP 18
== END 2020-01-29 11:35 | disposition home or self-care (01) ==
LOC: INF 10:18
PROVIDERS: PCP Family Medicine; Visit Provider Podiatrist
DX: M86.8X7 Other osteomyelitis, ankle and foot (principal)
CPT/HCPCS: 96365; J0878

== ENCOUNTER 2020-01-30 10:35 | Outpatient (CLI) | payer MEDICARE, SELFPAY ==
[2020-01-30 10:50] VITALS: BP 113/68; PULSE 66; RESP 18; TEMP 36.7; O2SAT 97
[2020-01-30 12:05] VITALS: BP 139/84; PULSE 63; RESP 18
== END 2020-01-30 12:05 | disposition home or self-care (01) ==
LOC: INF 10:36
PROVIDERS: Visit Provider Podiatrist
DX: M86.8X7 Other osteomyelitis, ankle and foot (principal)
CPT/HCPCS: 96365; J0878

== ENCOUNTER 2020-01-31 10:53 | Outpatient (CLI) | payer MEDICARE, SELFPAY ==
[2020-01-31 11:07] VITALS: BP 135/76; PULSE 68; RESP 18; TEMP 36.6; O2SAT 98
[2020-01-31 11:45] VITALS: BP 125/78; PULSE 72; RESP 18; TEMP 36.6; O2SAT 98
== END 2020-01-31 11:45 | disposition home or self-care (01) ==
LOC: INF 10:53
PROVIDERS: Visit Provider Podiatrist
DX: M86.8X7 Other osteomyelitis, ankle and foot (principal)
CPT/HCPCS: 96365; J0878

== ENCOUNTER → 2020-02-01 10:05 | Outpatient (CLI) | payer MEDICARE, SELFPAY ==
[2020-02-01 10:30] VITALS: BP 133/74; PULSE 77; RESP 17; TEMP 36.8; O2SAT 98
[2020-02-01 11:04] VITALS: BP 133/74; PULSE 78; RESP 18; TEMP 36.7; O2SAT 98
== END ==
PROVIDERS: PCP Family Medicine; Visit Provider Podiatrist
DX: M86.8X7 Other osteomyelitis, ankle and foot (principal)
CPT/HCPCS: 96365; J0878

== ENCOUNTER → 2020-02-02 09:53 | Outpatient (CLI) | payer MEDICARE, SELFPAY ==
[2020-02-02 10:15] VITALS: BP 134/77; PULSE 81; RESP 20; TEMP 37; O2SAT 98
--- NOTE | 2020-02-02 10:19 | PC.NURSE ---
NO 50 ML BAGS OF NS IN 2ND FLOOR OMNI, SPOKE WITH Matty FRIED IN PHARM REGARDING 50 ML BAG OF NS TO RUN CONCURRENTLY WITH IV ANTIBIOTICS, SHE STATED THAT THE 50 ML WAS NOT NEEDED FOR THIS INFUSION.
[2020-02-02 11:00] VITALS: BP 142/84; PULSE 68; RESP 20; TEMP 37; O2SAT 98
== END ==
PROVIDERS: PCP Family Medicine; Visit Provider Podiatrist
DX: M86.8X7 Other osteomyelitis, ankle and foot (principal)
CPT/HCPCS: 96365; J0878

== ENCOUNTER 2020-02-03 09:42 | Outpatient (CLI) | payer MEDICARE, SELFPAY ==
[2020-02-03 09:42] VITALS: BMI 25.9
[2020-02-03 09:53] VITALS: BP 134/69; PULSE 72; RESP 18; TEMP 36.6; O2SAT 98
[2020-02-03 09:56] LABS: Basophils % 0.3 % (0.1-2.0); Eosinophils # 0.3 K/mm3 (0.0-0.4); Eosinophils % 2.9 % (0.1-12.0); Hematocrit 44.6 % (42.0-52.0); Hemoglobin 14.5 g/dL (14.1-18.0); Lymphocytes # 1.7 K/mm3 (0.7-4.5); Lymphocytes % 16.8 % (10-50); Mean Corpuscular HGB Conc 32.6 g/dL (31.8-35.4); Mean Corpuscular Hemoglobin 30.2 pg (27.0-31.2); Mean Corpuscular Volume 92.7 fl (80-94); Mean Platelet Volume 7.4 fl (7.4-10.4); Monocytes # 0.7 K/mm3 (0.1-1.0); Monocytes % 6.8 % (1.7-9.3); Neutrophils # 7.4 K/mm3 (1.8-7.8); Neutrophils % 73.1 % (37.0-80.0); Platelet Count 491 K/mm3 (142-424); Red Blood Count 4.82 M/mm3 (4.60-6.20); Red Cell Distribution Width 14.4 % (11.5-17.5); White Blood Count 10.1 K/mm3 (4.8-10.8)
[2020-02-03 10:03] LABS: Chloride 104 mmol/L (98-107); Potassium 3.8 mmoL/L (3.5-5.1); Sodium 136 mmol/L (136-145)
[2020-02-03 10:06] LABS: Alanine Aminotransferase 26 U/L (12-78); Alkaline Phosphatase 113 U/L (38-126); Anion Gap 8.8 mEq/L (5-15); Aspartate Amino Transferase 33 U/L (17-59); Bilirubin,Total 0.4 mg/dl (0.2-1.3); Blood Urea Nitrogen 24 mg/dl (9-20); Calcium 9.4 mg/dl (8.4-10.2); Carbon Dioxide 27 mmol/L (22.0-30.0); Creatinine Clearance Estimated 82 mL/min (50-200); Estimated Glomerular Filt Rate 111 ml/min (>60); GFR (African American) 134 ML/MIN (>60); Glucose 104 mg/dl (74-100)
[2020-02-03 10:07] LABS: Albumin Level 3.8 g/dl (3.5-5.0); Albumin/Globulin Ratio 1.1 (1.1-1.8); Creatine Kinase 62 U/L (55-170); Globulin 3.6 g/dL (1.3-3.2); Total Protein,Serum 7.4 g/dl (6.3-8.2)
[2020-02-03 10:15] LABS: C-Reactive Protein 14.7 mg/L (0-4)
[2020-02-03 10:18] LABS: Erythrocyte Sedimentation Rate 82 mm/hr (0-20)
[2020-02-03 10:42] VITALS: BP 129/75; PULSE 71; RESP 18; TEMP 36.6; O2SAT 98
== END 2020-02-03 10:45 | disposition home or self-care (01) ==
LOC: INF 09:42
PROVIDERS: Visit Provider Podiatrist
DX: M86.8X7 Other osteomyelitis, ankle and foot (principal)
CPT/HCPCS: 80053; 82550; 85025; 85651; 86140; 96365; J0878

== ENCOUNTER 2020-02-04 10:37 | Outpatient (CLI) | payer MEDICARE, SELFPAY ==
[2020-02-04 11:01] VITALS: BP 122/70; PULSE 88; RESP 20; TEMP 36.4; O2SAT 98
[2020-02-04 11:31] VITALS: BP 115/71; PULSE 74; RESP 20; O2SAT 98
== END 2020-02-04 11:50 | disposition home or self-care (01) ==
LOC: INF 10:37
PROVIDERS: Visit Provider Podiatrist
DX: M86.8X7 Other osteomyelitis, ankle and foot (principal)
CPT/HCPCS: 96365; J0878

== ENCOUNTER 2020-02-05 10:30 | Outpatient (CLI) | payer MEDICARE, SELFPAY ==
[2020-02-05 10:55] VITALS: BP 129/71; PULSE 69; RESP 18; O2SAT 97
[2020-02-05 11:35] VITALS: BP 130/79; PULSE 65; RESP 18
== END 2020-02-05 11:55 | disposition home or self-care (01) ==
LOC: INF 10:34
PROVIDERS: Visit Provider Podiatrist
DX: M86.8X7 Other osteomyelitis, ankle and foot (principal); Z48.00 Encounter for change or removal of nonsurgical wound dressing
CPT/HCPCS: 96365; J0878

== ENCOUNTER 2020-02-06 10:31 | Outpatient (CLI) | payer MEDICARE, SELFPAY ==
[2020-02-06 10:33] VITALS: BP 139/89; PULSE 81; RESP 18; TEMP 36.9; O2SAT 97
[2020-02-06 11:45] VITALS: BP 135/78; PULSE 78; RESP 18; TEMP 36.8; O2SAT 97
== END 2020-02-06 11:45 | disposition home or self-care (01) ==
LOC: INF 10:31
PROVIDERS: Visit Provider Podiatrist
DX: M86.8X7 Other osteomyelitis, ankle and foot (principal); Z48.00 Encounter for change or removal of nonsurgical wound dressing
CPT/HCPCS: 96365; J0878

== ENCOUNTER 2020-02-07 12:05 | Outpatient (CLI) | payer MEDICARE, SELFPAY ==
[2020-02-07 12:30] VITALS: BP 123/79; PULSE 85; RESP 18; TEMP 36.6; O2SAT 97
[2020-02-07 13:10] VITALS: BP 125/74; PULSE 82; RESP 18
== END 2020-02-07 13:30 | disposition home or self-care (01) ==
LOC: INF 12:10
PROVIDERS: Visit Provider Podiatrist
DX: M86.8X7 Other osteomyelitis, ankle and foot (principal); Z48.00 Encounter for change or removal of nonsurgical wound dressing
CPT/HCPCS: 96365; J0878

== ENCOUNTER → 2020-02-08 10:22 | Outpatient (CLI) | payer MEDICARE, SELFPAY ==
[2020-02-08 10:46] VITALS: BP 138/76; PULSE 82; RESP 20; TEMP 37; O2SAT 99
== END ==
PROVIDERS: PCP Family Medicine; Visit Provider Podiatrist
DX: M86.8X7 Other osteomyelitis, ankle and foot (principal); M86.171 Other acute osteomyelitis, right ankle and foot
CPT/HCPCS: 96365; J0878

== ENCOUNTER → 2020-02-09 10:37 | Outpatient (CLI) | payer MEDICARE, SELFPAY ==
[2020-02-09 10:52] VITALS: BP 131/79; PULSE 78; RESP 20; TEMP 36.5; O2SAT 96
== END ==
PROVIDERS: PCP Family Medicine; Visit Provider Podiatrist
DX: M86.171 Other acute osteomyelitis, right ankle and foot
CPT/HCPCS: 96365; J0878

== ENCOUNTER 2020-02-10 10:04 | Outpatient (CLI) | payer MEDICARE, SELFPAY ==
[2020-02-10 10:06] VITALS: BMI 25.9
[2020-02-10 10:18] VITALS: BP 129/72; PULSE 72; RESP 18; TEMP 36.6; O2SAT 97
[2020-02-10 10:32] LABS: Basophils % 0.3 % (0.1-2.0); Eosinophils # 0.2 K/mm3 (0.0-0.4); Eosinophils % 1.8 % (0.1-12.0); Hematocrit 42.4 % (42.0-52.0); Hemoglobin 13.9 g/dL (14.1-18.0); Lymphocytes # 1.4 K/mm3 (0.7-4.5); Lymphocytes % 10.6 % (10-50); Mean Corpuscular HGB Conc 32.9 g/dL (31.8-35.4); Mean Corpuscular Hemoglobin 30.4 pg (27.0-31.2); Mean Corpuscular Volume 92.5 fl (80-94); Mean Platelet Volume 7.5 fl (7.4-10.4); Monocytes # 0.8 K/mm3 (0.1-1.0); Monocytes % 5.8 % (1.7-9.3); Neutrophils # 10.5 K/mm3 (1.8-7.8); Neutrophils % 81.4 % (37.0-80.0); Platelet Count 466 K/mm3 (142-424); Red Blood Count 4.58 M/mm3 (4.60-6.20); Red Cell Distribution Width 14.4 % (11.5-17.5); White Blood Count 12.9 K/mm3 (4.8-10.8)
[2020-02-10 10:43] LABS: Chloride 104 mmol/L (98-107); Potassium 3.5 mmoL/L (3.5-5.1); Sodium 136 mmol/L (136-145)
[2020-02-10 10:45] LABS: Blood Urea Nitrogen 19 mg/dl (9-20); Creatinine Clearance Estimated 81 mL/min (50-200); Estimated Glomerular Filt Rate 111 ml/min (>60); GFR (African American) 134 ML/MIN (>60)
[2020-02-10 10:46] LABS: Alanine Aminotransferase 29 U/L (12-78); Albumin Level 3.7 g/dl (3.5-5.0); Alkaline Phosphatase 118 U/L (38-126); Anion Gap 9.5 mEq/L (5-15); Aspartate Amino Transferase 38 U/L (17-59); Bilirubin,Total 0.4 mg/dl (0.2-1.3); Calcium 9.7 mg/dl (8.4-10.2); Carbon Dioxide 26 mmol/L (22.0-30.0); Creatine Kinase 67 U/L (55-170); Globulin 3.6 g/dL (1.3-3.2); Glucose 122 mg/dl (74-100); Total Protein,Serum 7.3 g/dl (6.3-8.2)
[2020-02-10 10:50] VITALS: BP 134/79; PULSE 74; RESP 16; TEMP 36.6; O2SAT 97
[2020-02-10 10:52] LABS: C-Reactive Protein 38.7 mg/L (0-4)
[2020-02-10 11:23] LABS: Erythrocyte Sedimentation Rate 45 mm/hr (0-20)
== END 2020-02-10 11:00 | disposition home or self-care (01) ==
LOC: INF 10:04
PROVIDERS: Visit Provider Podiatrist
DX: M86.171 Other acute osteomyelitis, right ankle and foot (principal)
CPT/HCPCS: 80053; 82550; 85025; 85651; 86140; 96365; J0878

== ENCOUNTER 2020-02-11 11:25 | Outpatient (CLI) | payer MEDICARE, SELFPAY ==
[2020-02-11 11:43] VITALS: BP 127/74; PULSE 78; RESP 18; TEMP 36.8; O2SAT 97
[2020-02-11 12:13] VITALS: BP 121/78; PULSE 79; RESP 18; O2SAT 97
[2020-02-11 12:25] VITALS: BP 141/81; PULSE 73; RESP 18; O2SAT 97
== END 2020-02-11 12:25 | disposition home or self-care (01) ==
LOC: INF 11:25
PROVIDERS: Visit Provider Podiatrist
DX: M86.171 Other acute osteomyelitis, right ankle and foot (principal)
CPT/HCPCS: 96365; J0878

== ENCOUNTER 2020-02-12 10:05 | Outpatient (CLI) | payer MEDICARE, SELFPAY ==
[2020-02-12 10:40] VITALS: BP 142/77; PULSE 74; RESP 18; TEMP 36.6; O2SAT 99
[2020-02-12 11:34] VITALS: BP 134/71; PULSE 76; RESP 18
== END 2020-02-12 11:34 | disposition home or self-care (01) ==
LOC: INF 10:34
PROVIDERS: Visit Provider Podiatrist
DX: M86.171 Other acute osteomyelitis, right ankle and foot (principal); Z48.00 Encounter for change or removal of nonsurgical wound dressing
CPT/HCPCS: 96365; J0878

== ENCOUNTER 2020-02-13 10:22 | Outpatient (CLI) | payer MEDICARE, SELFPAY ==
[2020-02-13 10:43] VITALS: BP 125/78; PULSE 68; RESP 18; TEMP 36.6; O2SAT 97
[2020-02-13 11:45] VITALS: BP 135/74; PULSE 72; RESP 18; TEMP 36.6; O2SAT 97
== END 2020-02-13 11:45 | disposition home or self-care (01) ==
LOC: INF 10:22
PROVIDERS: Visit Provider Podiatrist
DX: M86.171 Other acute osteomyelitis, right ankle and foot (principal)
CPT/HCPCS: 96365; J0878

== ENCOUNTER 2020-02-14 10:25 | Outpatient (CLI) | payer MEDICARE, SELFPAY ==
[2020-02-14 11:02] VITALS: BP 129/67; PULSE 76; RESP 18; TEMP 36.9; O2SAT 97
[2020-02-14 11:58] VITALS: BP 164/75; PULSE 75; RESP 18
== END 2020-02-14 11:58 | disposition home or self-care (01) ==
LOC: INF 10:36
PROVIDERS: Visit Provider Podiatrist
DX: M86.171 Other acute osteomyelitis, right ankle and foot (principal)
CPT/HCPCS: 96365; J0878

== ENCOUNTER 2020-02-15 10:18 | Outpatient (CLI) | payer MEDICARE, SELFPAY ==
[2020-02-15 11:01] VITALS: BP 120/74; PULSE 78; RESP 20; TEMP 36.9; O2SAT 97
== END 2020-02-15 12:01 | disposition home or self-care (01) ==
LOC: INF 10:19
PROVIDERS: PCP Family Medicine; Visit Provider Podiatrist
DX: M86.171 Other acute osteomyelitis, right ankle and foot (principal)
CPT/HCPCS: 96365; J0878

== ENCOUNTER 2020-02-16 10:13 | Outpatient (CLI) | payer MEDICARE, SELFPAY ==
[2020-02-16 11:00] VITALS: BP 123/76; PULSE 71; RESP 17; O2SAT 97
== END 2020-02-16 11:40 | disposition home or self-care (01) ==
LOC: INF 10:13
PROVIDERS: PCP Family Medicine; Visit Provider Podiatrist
DX: M86.171 Other acute osteomyelitis, right ankle and foot (principal)
CPT/HCPCS: 96365; J0878

== ENCOUNTER 2020-02-17 09:39 | Outpatient (CLI) | payer MEDICARE, SELFPAY ==
[2020-02-17 09:44] VITALS: BMI 25.9
[2020-02-17 10:04] VITALS: BP 150/85; PULSE 69; RESP 18; TEMP 36.4; O2SAT 97
[2020-02-17 10:21] LABS: Chloride 104 mmol/L (98-107); Potassium 3.5 mmoL/L (3.5-5.1); Sodium 138 mmol/L (136-145)
[2020-02-17 10:23] LABS: Creatine Kinase 47 U/L (55-170)
[2020-02-17 10:24] LABS: Alanine Aminotransferase 27 U/L (12-78); Albumin Level 3.7 g/dl (3.5-5.0); Albumin/Globulin Ratio 1.1 (1.1-1.8); Alkaline Phosphatase 116 U/L (38-126); Anion Gap 11.5 mEq/L (5-15); Aspartate Amino Transferase 34 U/L (17-59); Bilirubin,Total 0.5 mg/dl (0.2-1.3); Blood Urea Nitrogen 23 mg/dl (9-20); Calcium 9.1 mg/dl (8.4-10.2); Carbon Dioxide 26 mmol/L (22.0-30.0); Creatinine Clearance Estimated 81 mL/min (50-200); Estimated Glomerular Filt Rate 111 ml/min (>60); GFR (African American) 134 ML/MIN (>60); Globulin 3.4 g/dL (1.3-3.2); Glucose 103 mg/dl (74-100); Total Protein,Serum 7.1 g/dl (6.3-8.2)
[2020-02-17 10:28] LABS: Basophils % 0.3 % (0.1-2.0); Eosinophils # 0.2 K/mm3 (0.0-0.4); Eosinophils % 2.2 % (0.1-12.0); Hematocrit 42.7 % (42.0-52.0); Hemoglobin 13.9 g/dL (14.1-18.0); Lymphocytes % 18.4 % (10-50); Mean Corpuscular HGB Conc 32.5 g/dL (31.8-35.4); Mean Corpuscular Hemoglobin 29.7 pg (27.0-31.2); Mean Corpuscular Volume 91.4 fl (80-94); Mean Platelet Volume 7.8 fl (7.4-10.4); Monocytes # 0.9 K/mm3 (0.1-1.0); Monocytes % 8.8 % (1.7-9.3); Neutrophils # 7.5 K/mm3 (1.8-7.8); Neutrophils % 70.2 % (37.0-80.0); Platelet Count 502 K/mm3 (142-424); Red Blood Count 4.67 M/mm3 (4.60-6.20); Red Cell Distribution Width 14.4 % (11.5-17.5); White Blood Count 10.7 K/mm3 (4.8-10.8)
[2020-02-17 10:29] LABS: C-Reactive Protein 9.7 mg/L (0-4)
[2020-02-17 10:55] VITALS: BP 130/80; PULSE 70; RESP 18; TEMP 36.6; O2SAT 97
[2020-02-17 11:11] LABS: Erythrocyte Sedimentation Rate 59 mm/hr (0-20)
[2020-02-18 17:13] LABS: CK-MB 0 % (0-3); CK-MM 100 % (97-100); Creatine Kinase,Total,Serum 62 U/L (41-331); Macro Type 1 0 % (Not Observed); Macro Type 2 0 % (Not Observed)
[2020-02-19 10:47] LABS: CK-BB 0 % (0)
== END 2020-02-17 10:55 | disposition home or self-care (01) ==
LOC: INF 09:39
PROVIDERS: Visit Provider Podiatrist
DX: M86.171 Other acute osteomyelitis, right ankle and foot (principal)
CPT/HCPCS: 80053; 82550; 82552; 85025; 85651; 86140; 96365; J0878

== ENCOUNTER → 2020-02-17 12:08 | Outpatient (CLI) | payer MEDICARE, SELFPAY ==
--- NOTE | 2020-02-17 12:14 | XR_ITS ---
PROCEDURE: XR FOOT WT BEARING RT 3V CLINICAL INDICATION: pain COMPARISON: CR XR FOOT WT BEARING RT 3V from 10/15/2019 CR XR FOOT RT 2V from 01/10/2020 CR XR FOOT RT MIN 3V from 01/10/2020 CR XR FOOT WT BEARING RT 3V from 01/27/2020 FINDINGS: Prior amputation at the base of the 5th metatarsal. Prior amputation at the 3rd metatarsophalangeal joint. Old fractures at the distal aspect of the 3rd and 4th metatarsals with small screws present at these areas. Osteoarthritic changes are present at the 1st metatarsophalangeal joint. There is generalized vascular calcification. Other findings:None. IMPRESSION: Postsurgical changes with osteoarthritis, no change with no acute finding Dictated by: Jony Larsen MD 02/17/2020 12:52 Jony Larsen MD in [facility] 02/17/2020 12:52
== END ==
PROVIDERS: PCP Family Medicine; Visit Provider Podiatrist
DX: L84 Corns and callosities (principal); Z98.890 Other specified postprocedural states; R52 Pain, unspecified; Z79.899 Other long term (current) drug therapy
CPT/HCPCS: 73630; 80053; 82550; 82552; 85025; 85651; 86140; 96365; J0878

== ENCOUNTER 2020-02-18 11:09 | Outpatient (CLI) | payer MEDICARE, SELFPAY ==
[2020-02-18 11:13] VITALS: BP 127/75; PULSE 76; RESP 18; TEMP 36.6; O2SAT 97
[2020-02-18 12:05] VITALS: BP 132/74; PULSE 72; RESP 16; TEMP 36.6; O2SAT 96
== END 2020-02-18 12:08 | disposition home or self-care (01) ==
LOC: INF 11:09
PROVIDERS: Visit Provider Podiatrist
DX: M86.171 Other acute osteomyelitis, right ankle and foot (principal)
CPT/HCPCS: 96365; J0878

== ENCOUNTER 2020-02-19 10:40 | Outpatient (CLI) | payer MEDICARE, SELFPAY ==
[2020-02-19 11:10] VITALS: BP 144/82; PULSE 69; RESP 18; O2SAT 98
[2020-02-19 12:15] VITALS: BP 140/81; PULSE 67; RESP 18
== END 2020-02-19 12:15 | disposition home or self-care (01) ==
LOC: INF 10:47
PROVIDERS: Visit Provider Podiatrist
DX: M86.171 Other acute osteomyelitis, right ankle and foot (principal)
CPT/HCPCS: 96365; J0878

== ENCOUNTER 2020-02-20 10:07 | Outpatient (CLI) | payer MEDICARE, SELFPAY ==
[2020-02-20 10:15] VITALS: BP 151/83; PULSE 75; RESP 18; TEMP 36.6; O2SAT 96
[2020-02-20 11:10] VITALS: BP 132/79; PULSE 78; RESP 16; TEMP 36.6; O2SAT 97
== END 2020-02-20 11:10 | disposition home or self-care (01) ==
LOC: INF 10:07
PROVIDERS: Visit Provider Podiatrist
DX: M86.171 Other acute osteomyelitis, right ankle and foot (principal)
CPT/HCPCS: 96365; J0878

== ENCOUNTER 2020-02-21 07:46 | Outpatient (CLI) | payer MEDICARE, SELFPAY ==
--- NOTE | 2020-02-21 07:46 | CT_ITS ---
PROCEDURE: CT FOOT RT WO CON CLINICAL HISTORY: evaluate for underlying osteomyelitis. swelling and pain in 2nd metatarsal phalangeal joint. recent toe ampt. COMPARISON: CR XR CHEST PORTABLE PICC PLAC from 01/10/2020 CR XR FOOT WT BEARING RT 3V from 02/17/2020 TECHNIQUE: Axial images obtained with sagittal and coronal reformats. All CT scans at the facility use one or more dose reduction, viz: automated exposure control, ma/kV adjustment per patient size (including targeted exams where dose is matched to indication, i.e. head), or iterative reconstruction technique. FINDINGS: Generalized vascular calcification is evident. The ankle has an unremarkable appearance. The ankle mortise is preserved and the talar dome has an unremarkable appearance. There is some minimal calcifications at the tip of the medial malleolus and may be degenerative or chronic posttraumatic in nature. Mild osteoarthritic changes are present at the talonavicular joint and calcaneocuboid joint. Osteoarthritic changes are present at the 1st metatarsophalangeal junction with some mild subchondral cystic changes. The tuft of the distal phalanx of the great toe is cut off on the images. If this is an area of clinical concern in this can be repeated at no additional charge to cover this area. There is hammertoe deformity at the 2nd metatarsal phalangeal joint with osteoarthritic changes at the 2nd MTP and PIP and DIP. There is mild lateral angulation of the proximal phalanx at the 2nd MTP joint. There has been prior amputation at the 3rd metatarsophalangeal joint. There is a small screw at the distal aspect of the 3rd metatarsal. There is some bony remodeling of the head of the 3rd metatarsal. No definite bony destruction. There is a small screw in the head of the 4th metatarsal with some bony remodeling of this area. There has been amputation at the base of the 5th metatarsal.. There is prominent lucency in the intramedullary region at the amputation site possibly postsurgical change. No definite bony destruction. No abscess evident. There is some increased density noted within the soft tissues along the dorsal and lateral aspect of the 4th metatarsal distally and in the amputation bed of the 5th metatarsal and may be related to residual from antibiotic beads. Soft tissue swelling is present laterally at the of amputation site. IMPRESSION: Postsurgical changes and degenerative changes as detailed above. No convincing evidence of acute osteomyelitis or abscess. Please see above for detail if symptoms persist, MRI or three-phase bone scan may provide further evaluation. Dictated by: Jony Larsen MD 02/22/2020 09:41 Jony Larsen MD in [facility] 02/22/2020 09:41
[2020-02-21 08:40] VITALS: BP 122/66; PULSE 72; RESP 18; O2SAT 97
[2020-02-21 09:30] VITALS: BP 121/77; PULSE 68; RESP 18
== END 2020-02-21 09:45 | disposition home or self-care (01) ==
PROVIDERS: PCP Family Medicine; Visit Provider Podiatrist
DX: M86.171 Other acute osteomyelitis, right ankle and foot (principal)
CPT/HCPCS: 73700; 96365; J0878

== ENCOUNTER → 2020-07-17 08:29 | Outpatient (CLI) | payer MEDICARE, SELFPAY ==
[2020-07-17 09:33] LABS: Alanine Aminotransferase 29 U/L (12-78); Alkaline Phosphatase 103 U/L (38-126); Aspartate Amino Transferase 37 U/L (17-59); Bilirubin,Direct 0.2 mg/dl (0.0-0.4); Bilirubin,Indirect 0.4 mg/dL (0.0-0.9); Bilirubin,Total 0.6 mg/dl (0.2-1.3); Bilirubin,Unconjugated 0.4 mg/dL (0.0-1.1); Chol/HDL Ratio 2.2 (1-3.5); Cholesterol 153 mg/dl (140-200); HDL Cholesterol 69 mg/dl (40-60); Triglycerides 106 mg/dl (30-150); VLDL Cholesterol 21 mg/dL (0-40)
[2020-07-17 09:44] LABS: Direct LDL Cholesterol 63.12 mg/dL (100-129)
== END ==
PROVIDERS: Visit Provider Nurse Practitioner Family
DX: E78.5 Hyperlipidemia, unspecified (principal); I10 Essential (primary) hypertension; I25.10 Atherosclerotic heart disease of native coronary artery without angina pectoris; I73.9 Peripheral vascular disease, unspecified
CPT/HCPCS: 36415; 80061; 80076